=== PATIENT | female | born 1995 | race Caucasian/White ===

== ENCOUNTER 2022-06-27 22:27 | Emergency (ER) | payer SELFPAY ==
[~2022-06-27] VITALS: Ht 170.2 cm; Wt 59.0 kg
[2022-06-27 22:50] VITALS: BP 141/97
[2022-06-27] MEDS ORDERED: NALO4SPR BOTHNSTRLS (23:34)
== END 2022-06-28 01:14 | disposition home or self-care (01) ==
LOC: ER 22:39
DX: T40.411A Poisoning by fentanyl or fentanyl analogs, accidental (unintentional), initial encounter (principal); X58.XXXA Exposure to other specified factors, initial encounter; F32.9 Major depressive disorder, single episode, unspecified
CPT/HCPCS: 99283